=== PATIENT | female | born 1955 | race Caucasian/White ===

== ENCOUNTER 2025-04-24 10:53 | Emergency (ER) | payer MEDICARE, BC, SELFPAY ==
[2025-04-24 10:55] VITALS: BP 99/63; PULSE 69; RESP 16; TEMP 36.6; O2SAT 97
--- NOTE | 2025-04-24 13:27 | ED_ITS ---
HPI - General Adult General Chief complaint: Eye Problems Stated complaint: eye problem Time Seen by Provider: 04/24/25 11:59 History of Present Illness HPI narrative: 69-year-old female presents to the emergency department for evaluation for a stye to the right eye. Patient reports that is been ongoing for the last few days. Patient has been using a warm compression the right eye. Patient does have a remote history of styes to that eye pain Related Data Allergies Allergy/AdvReac Type Severity Reaction Status Date / Time tetracycline AdvReac Intermediate Heartburn Verified 04/24/25 11:31 clindmycin AdvReac Intermediate Heartburn Uncoded 04/24/25 11:31 Review of Systems Review of Systems: All systems reviewed & are unremarkable except as noted in HPI and below Exam Narrative: APPEARANCE: Well appearing, no pain, no distress, well-nourished. HEAD: normocephalic, atraumatic. EYES: Mild erythema of right upper eyelid. chalazion when eyelid inverted NOSE: Normal no drainage EARS:TMS clear with good light reflex. THROAT: Pharynx clear, no exudate. NECK: Supple. No adenopathy, no masses. RESPIRATORY: Airway patent, respirations nonlabored. Clear to auscultation bilaterally, no rales, rhonchi, wheezing. CARDIOVASCULAR: Regular rate and rhythm without murmurs rubs or gallops. ABDOMINAL: Soft, nontender, nondistended, normal bowel sounds MUSCULOSKELETAL: Moves all extremities. Strength/ROM intact, No edema, No calf tenderness. NEURO: Alert. Cranial nerves II through XII intact. SKIN: Warm, dry. Normal Color Course Vital Signs Vital signs: Vital Signs Temperature 97.8 F 04/24/25 10:55 Pulse Rate 69 04/24/25 10:55 Respiratory Rate 16 04/24/25 10:55 Blood Pressure 99/63 L 04/24/25 10:55 Pulse Oximetry 97 04/24/25 10:55 Oxygen Delivery Room Air 04/24/25 10:55 Temperature 98.5 F 04/24/25 13:42 Pulse Rate 72 04/24/25 13:42 Respiratory Rate 16 04/24/25 13:42 Blood Pressure 105/72 04/24/25 13:42 Pulse Oximetry 99 04/24/25 13:42 Oxygen Delivery Room Air 04/24/25 10:55 Medical Decision Making MDM Narrative Medical decision making narrative: 69-year-old female presented emergency department for evaluation for a stye/Chalazion of her right upper eyelid. Patient has no vision changes. No evidence of preseptal cellulitis. Patient was advised to continue the warm compresses and to follow-up with ophthalmology. Patient is from [place] of town. All questions concerns were addressed patient was comfortable with plan for discharge and close follow-up. Differential Diagnosis Differential Diagnosis: Stye, cellulitis, orbital cellulitis, preseptal cellulitis Vital Signs Vital Signs: Vital Signs Temperature 97.8 F 04/24/25 10:55 Pulse Rate 69 04/24/25 10:55 Respiratory Rate 16 04/24/25 10:55 Blood Pressure 99/63 L 04/24/25 10:55 Pulse Oximetry 97 04/24/25 10:55 Oxygen Delivery Room Air 04/24/25 10:55 Temperature 98.5 F 04/24/25 13:42 Pulse Rate 72 04/24/25 13:42 Respiratory Rate 16 04/24/25 13:42 Blood Pressure 105/72 04/24/25 13:42 Pulse Oximetry 99 04/24/25 13:42 Oxygen Delivery Room Air 04/24/25 10:55 Discharge Plan Discharge Clinical Impression: Hordeolum of right upper eyelid Patient Disposition: Home Condition: Stable Instructions: Antibiotic Form, Daryl (ED) Additional Instructions: Warm compress as directed. Have close follow-up with Ophthalmology. Patient Language: Brazilian Follow-up/Referrals: PHYSICIAN NOT ON STAFF,NONSTAFF [Primary Care Provider] -
[2025-04-24 13:42] VITALS: BP 105/72; PULSE 72; RESP 16; TEMP 36.9; O2SAT 99
== END 2025-04-24 13:46 | disposition home or self-care (01) ==
PROVIDERS: Emergency Provider Emergency Medicine
DX: H00.011 Hordeolum externum right upper eyelid (principal)
CPT/HCPCS: 99282